=== PATIENT | male | born 1985 | race American Indian/Alaskan Native ===

== ENCOUNTER 2018-04-13 18:07 | Emergency (ER) | payer SELFPAY ==
[2018-04-13 18:30] VITALS: BP 113/87
--- NOTE | 2018-04-13 19:33 | Emergency Department Report ---
ED ENT HPI - General Chief complaint: Dental/Oral Stated complaint: TOOTHACHE Time Seen by Provider: 04/13/18 19:25 Source: patient Mode of arrival: Ambulatory Limitations: No Limitations - History of Present Illness Initial comments: 32-year-old male past medical history none presents with complaint of 2 weeks of left upper toothache. Denies pus or blood drainage from mouth. Speaking in full sentences. Denies fevers or chills. No trismus or drooling noted MD complaint: tooth pain Onset/Timin -: week(s) Location: tooth # 1 - fracture/cavity here Severity: mild Severity scale (0 -10): 6 Quality: aching Consistency: intermittent Improves with: none Worsens with: none Context- Dental: history of dental caries, poor dental care Associated Symptoms: toothache - Related Data Previous Rx's Medication Instructions Recorded Last Taken Type Cyclobenzaprine [Flexeril 10 MG 10 mg PO TID PRN #30 tablet 07/07/15 Unknown Rx TAB] HYDROcodone/APAP 5-325 [[place] 1 each PO Q6HR PRN #20 tablet 07/07/15 Unknown Rx 5-325 mg TAB] Ibuprofen [Motrin 800 MG tab] 800 mg PO Q8HR PRN #50 tablet 07/07/15 Unknown Rx Acetaminophen/Codeine [Tylenol 1 tab PO Q6H PRN #12 tab 04/13/18 Unknown Rx /Codeine # 3 tab] Chlorhexidine Mouthwash [Peridex] 15 ml MM BID #1 bottle 04/13/18 Unknown Rx Ibuprofen [Motrin] 800 mg PO Q8HR PRN #25 tablet 04/13/18 Unknown Rx Allergies Allergy/AdvReac Type Severity Reaction Status Date / Time No Known Allergies Allergy Unverified 07/07/15 07:17 ED Dental HPI - General Chief complaint: Dental/Oral Stated complaint: TOOTHACHE Time Seen by Provider: 04/13/18 19:25 Source: patient Mode of arrival: Ambulatory Limitations: No Limitations - Related Data Previous Rx's Medication Instructions Recorded Last Taken Type Cyclobenzaprine [Flexeril 10 MG 10 mg PO TID PRN #30 tablet 07/07/15 Unknown Rx TAB] HYDROcodone/APAP 5-325 [[place] 1 each PO Q6HR PRN #20 tablet 07/07/15 Unknown Rx 5-325 mg TAB] Ibuprofen [Motrin 800 MG tab] 800 mg PO Q8HR PRN #50 tablet 07/07/15 Unknown Rx Acetaminophen/Codeine [Tylenol 1 tab PO Q6H PRN #12 tab 04/13/18 Unknown Rx /Codeine # 3 tab] Chlorhexidine Mouthwash [Peridex] 15 ml MM BID #1 bottle 04/13/18 Unknown Rx Ibuprofen [Motrin] 800 mg PO Q8HR PRN #25 tablet 04/13/18 Unknown Rx Allergies Allergy/AdvReac Type Severity Reaction Status Date / Time No Known Allergies Allergy Unverified 07/07/15 07:17 ED Review of Systems ROS: Stated complaint: TOOTHACHE Other details as noted in HPI Constitutional: denies: chills, fever Eyes: denies: eye pain, eye discharge, vision change ENT: dental pain. denies: ear pain, throat pain Respiratory: denies: cough, shortness of breath, wheezing Cardiovascular: denies: chest pain, palpitations Endocrine: no symptoms reported Gastrointestinal: denies: abdominal pain, nausea, diarrhea Genitourinary: denies: urgency, dysuria Musculoskeletal: denies: back pain, joint swelling, arthralgia Skin: denies: rash, lesions Neurological: denies: headache, weakness, paresthesias Psychiatric: denies: anxiety, depression Hematological/Lymphatic: denies: easy bleeding, easy bruising ED Past Medical Hx - Past Medical History Previous Medical History?: No - Surgical History Past Surgical History?: No - Social History Smoking Status: Current Every Day Smoker - Medications Home Medications: Home Medications Medication Instructions Recorded Confirmed Last Taken Type Cyclobenzaprine [Flexeril 10 MG 10 mg PO TID PRN #30 tablet 07/07/15 Unknown Rx TAB] HYDROcodone/APAP 5-325 [[place] 1 each PO Q6HR PRN #20 tablet 07/07/15 Unknown Rx 5-325 mg TAB] Ibuprofen [Motrin 800 MG tab] 800 mg PO Q8HR PRN #50 tablet 07/07/15 Unknown Rx Acetaminophen/Codeine [Tylenol 1 tab PO Q6H PRN #12 tab 04/13/18 Unknown Rx /Codeine # 3 tab] Chlorhexidine Mouthwash [Peridex] 15 ml MM BID #1 bottle 04/13/18 Unknown Rx Ibuprofen [Motrin] 800 mg PO Q8HR PRN #25 tablet 04/13/18 Unknown Rx ED Physical Exam - General Limitations: No Limitations General appearance: alert, in no apparent distress - Head Head exam: Present: atraumatic, normocephalic - Eye Eye exam: Present: normal appearance, PERRL, EOMI - ENT ENT exam: Present: mucous membranes moist - Expanded ENT Exam Expanded Teeth exam: Present: dental tenderness # 1 - Fractured (large cavity) - Neck Neck exam: Present: normal inspection - Respiratory Respiratory exam: Present: normal lung sounds bilaterally. Absent: respiratory distress - Cardiovascular Cardiovascular Exam: Present: regular rate, normal rhythm. Absent: systolic murmur, diastolic murmur, rubs, gallop - GI/Abdominal GI/Abdominal exam: Present: soft, normal bowel sounds - Rectal Rectal exam: Present: deferred - Extremities Exam Extremities exam: Present: normal inspection - Back Exam Back exam: Present: normal inspection - Neurological Exam Neurological exam: Present: alert, oriented X3 - Psychiatric Psychiatric exam: Present: normal affect, normal mood - Skin Skin exam: Present: warm, dry, intact, normal color. Absent: rash ED Course Vital Signs 04/13/18 18:23 Temperature 98.5 F Pulse Rate 60 Respiratory 16 Rate Blood Pressure 113/87 Blood Pressure 113/87 [Right] O2 Sat by Pulse 100 Oximetry ED Medical Decision Making - Medical Decision Making A/P: dental cavity, toothache 1- Motrin when necessary, short course codeine when necessary, peridex mouthwash , no signs of infection or abscess on exam 2- I provided patient with information for multiple dental clinics to follow up and stressed the importance of dental follow-up as he has multiple cavities that require dental fixation or instrumentation 3- no clinical signs of facial abscess, no Pedro Luis's angina, no induration or cellulitis of floor of mouth or tongue 4- patient able to tolerate by mouth before discharge Critical care attestation.: If time is entered above; I have spent that time in minutes in the direct care of this critically ill patient, excluding procedure time. ED Disposition Clinical Impression: Toothache Disposition: DC-01 TO HOME OR SELFCARE Is pt being admited?: No Does the pt Need Aspirin: No Condition: Stable Instructions: Toothache (ED), Dental Caries (ED) Prescriptions: Acetaminophen/Codeine [Tylenol /Codeine # 3 tab] 1 tab PO Q6H PRN #12 tab PRN Reason: Toothache Chlorhexidine Mouthwash [Peridex] 15 ml MM BID #1 bottle Ibuprofen [Motrin] 800 mg PO Q8HR PRN #25 tablet PRN Reason: Pain Referrals: [facility] [Outside] - 3-5 Days Time of Disposition: 19:33
[2018-04-13] MEDS ORDERED: TYLENOL PO ONE (19:34)
== END 2018-04-13 20:24 | disposition home or self-care (01) ==
LOC: ED 18:07
DX: K08.89 Other specified disorders of teeth and supporting structures (principal); F17.200 Nicotine dependence, unspecified, uncomplicated
CPT/HCPCS: 99282

== ENCOUNTER 2019-05-23 20:12 | Emergency (ER) | payer OTHER ==
[2019-05-23 21:05] VITALS: BP 119/63
--- NOTE | 2019-05-23 21:07 | Event Note ---
ED Screening Note Date of service: 05/23/19 Time: 21:07 ED Screening Note: This is a 33 y.o. M. that presents to the ER with left foot pain s/p work related injury around 0600 this morning. This initial assessment/diagnostic orders/clinical plan/treatment(s) is/are subject to change based on patients health status, clinical progression and re- assessment by fellow clinical providers in the ED. Further treatment and workup at subsequent clinical providers discretion. Patient/guardian urged not to elope from the ED as their condition may be serious if not clinically assessed and managed. Initial orders include: XR left foot
[2019-05-23] MEDS ORDERED: NORCO 5/325 PO ONE (22:43)
--- NOTE | 2019-05-23 23:26 | XRay Report ---
PROCEDURE: XR FOOT 3+V LT TECHNIQUE: AP, oblique and lateral view of the left foot was obtained. HISTORY: foot pain blunt trauma COMPARISONS: None FINDINGS: Bone density appears normal. No fracture or dislocation is seen. Joint spaces are well maintained. No radiopaque foreign bodies are identified. IMPRESSION: Negative exam.. This document is electronically signed by Jose C Aranda MD., May 23 2019 11:24:19 PM ET
--- NOTE | 2019-05-23 23:36 | Emergency Department Report ---
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 Complaint: foot injury Onset/Timin -: days(s) Injury: Foot: Left Type of Injury: blunt Place: work Severity: moderate Severity scale (0 -10): 5 Improves With: rest Worsens With: weight bearing, movement, palpation Context: direct blow Associated Symptoms: ambulatory - Related Data Previous Rx's Medication Instructions Recorded Last Taken Type Cyclobenzaprine [Flexeril 10 MG 10 mg PO TID PRN #30 tablet 07/07/15 Unknown Rx TAB] HYDROcodone/APAP 5-325 [[place] 1 each PO Q6HR PRN #20 tablet 07/07/15 Unknown Rx 5-325 mg TAB] Ibuprofen [Motrin 800 MG tab] 800 mg PO Q8HR PRN #50 tablet 07/07/15 Unknown Rx Acetaminophen/Codeine [Tylenol 1 tab PO Q6H PRN #12 tab 04/13/18 Unknown Rx /Codeine # 3 tab] Chlorhexidine Mouthwash [Peridex] 15 ml MM BID #1 bottle 04/13/18 Unknown Rx Ibuprofen [Motrin] 800 mg PO Q8HR PRN #25 tablet 04/13/18 Unknown Rx Naproxen [Naprosyn] 500 mg PO BID PRN #30 tablet 05/23/19 Unknown Rx Allergies Allergy/AdvReac Type Severity Reaction Status Date / Time No Known Allergies Allergy Unverified 07/07/15 07:17 ED Review of Systems ROS: Stated complaint: LEFT TOE PAIN Other details as noted in HPI Constitutional: denies: chills, fever Eyes: denies: eye pain, eye discharge, vision change ENT: denies: ear pain, throat pain Respiratory: denies: cough, shortness of breath, wheezing Cardiovascular: denies: chest pain, palpitations Endocrine: no symptoms reported Gastrointestinal: denies: abdominal pain, nausea, diarrhea Genitourinary: denies: urgency, dysuria Musculoskeletal: other (foot pain ) Skin: denies: rash, lesions Neurological: denies: headache, weakness, paresthesias Psychiatric: denies: anxiety, depression Hematological/Lymphatic: denies: easy bleeding, easy bruising ED Past Medical Hx - Past Medical History Previous Medical History?: No - Surgical History Past Surgical History?: No - Social History Smoking Status: Never Smoker Substance Use Type: None - Medications Home Medications: Home Medications Medication Instructions Recorded Confirmed Last Taken Type Cyclobenzaprine [Flexeril 10 MG 10 mg PO TID PRN #30 tablet 07/07/15 Unknown Rx TAB] HYDROcodone/APAP 5-325 [[place] 1 each PO Q6HR PRN #20 tablet 07/07/15 Unknown Rx 5-325 mg TAB] Ibuprofen [Motrin 800 MG tab] 800 mg PO Q8HR PRN #50 tablet 07/07/15 Unknown Rx Acetaminophen/Codeine [Tylenol 1 tab PO Q6H PRN #12 tab 04/13/18 Unknown Rx /Codeine # 3 tab] Chlorhexidine Mouthwash [Peridex] 15 ml MM BID #1 bottle 04/13/18 Unknown Rx Ibuprofen [Motrin] 800 mg PO Q8HR PRN #25 tablet 04/13/18 Unknown Rx Naproxen [Naprosyn] 500 mg PO BID PRN #30 tablet 05/23/19 Unknown Rx ED Physical Exam - General Limitations: No Limitations General appearance: alert, in no apparent distress - Head Head exam: Present: atraumatic, normocephalic - Eye Eye exam: Present: normal appearance, PERRL, EOMI Pupils: Present: normal accommodation - ENT ENT exam: Present: mucous membranes moist - Neck Neck exam: Present: normal inspection, full ROM. Absent: tenderness, lymphadenopathy - Respiratory Respiratory exam: Present: normal lung sounds bilaterally. Absent: respiratory distress, wheezes, stridor, chest wall tenderness - Cardiovascular Cardiovascular Exam: Present: regular rate, normal rhythm, normal heart sounds. Absent: systolic murmur, diastolic murmur, rubs, gallop - GI/Abdominal GI/Abdominal exam: Present: soft, normal bowel sounds. Absent: distended, tenderness, guarding, rebound, rigid, bruit, hernia - Rectal Rectal exam: Present: deferred - Extremities Exam Extremities exam: Present: normal inspection, full ROM, tenderness (left lateral dorsal foot pain mild bruising distal pulses intact ), normal capillary refill. Absent: pedal edema, joint swelling, calf tenderness - Expanded Lower Extremity Exam Left Foot/Toe exam: Present: full ROM, tenderness, erythema. Absent: swelling, abrasion, laceration, ecchymosis, deformity, crepidus, dislocation, amputation, puncture wound, foreign body, calcaneal tenderness, tenderness at base of 5th metatarsal, nail avulsion, subungual hematoma Neuro vascular tendon exam: Absent: pulse deficit, motor deficit, sensory deficit, tendon deficit Gait: Positive: observed and normal - Back Exam Back exam: Present: normal inspection, full ROM. Absent: tenderness, CVA tenderness (R), CVA tenderness (L), muscle spasm, paraspinal tenderness, vertebral tenderness, rash noted - Neurological Exam Neurological exam: Present: alert, oriented X3, CN II-XII intact, normal gait, reflexes normal. Absent: motor sensory deficit - Psychiatric Psychiatric exam: Present: normal affect, normal mood - Skin Skin exam: Present: warm, dry, intact, normal color. Absent: rash ED Course Vital Signs 05/23/19 20:21 Temperature 98.0 F Pulse Rate 76 Respiratory 19 Rate Blood Pressure 119/63 O2 Sat by Pulse 95 Oximetry ED Lower Extremity MDM - Radiology Data Radiology results: report reviewed, image reviewed Ordering Physician: HADLEY BLISS NP Date of Service: 05/23/19 Procedure(s): XR foot 3+V LT Accession Number(s): [id number] cc: HADLEY BLISS NP Fluoro Time In Minutes: PROCEDURE: XR FOOT 3+V LT TECHNIQUE: AP, oblique and lateral view of the left foot was obtained. HISTORY: foot pain blunt trauma COMPARISONS: None FINDINGS: Bone density appears normal. No fracture or dislocation is seen. Joint spaces are well maintained. No radiopaque foreign bodies are identified. IMPRESSION: Negative exam.. This document is electronically signed by Jose C Aranda MD., May 23 2019 11:24:19 PM ET Transcribed By: DFN Dictated By: JOSE C ARANDA MD Electronically Authenticated By: JOSE C ARANDA MD Signed Date/Time: 05/23/19 6394 DD/ 00 TD/TT: 05/23/192300 - Medical Decision Making th is a foot sprain plan: nsaids , rice therapy , follow up with pcp in 2-3 days return to ed if symptoms worsen. Critical care attestation.: If time is entered above; I have spent that time in minutes in the direct care of this critically ill patient, excluding procedure time. ED Disposition Clinical Impression: Sprain of foot, left Qualifiers: Encounter type: initial encounter Qualified Code(s): S93.602A - Unspecified sprain of left foot, initial encounter Disposition: TO HOME OR SELFCARE Is pt being admited?: No Does the pt Need Aspirin: No Condition: Stable Instructions: Foot Sprain (ED) Prescriptions: Naproxen [Naprosyn] 500 mg PO BID PRN #30 tablet PRN Reason: pain Referrals: ANNA GASTELUM MD [Primary Care Provider] - 3-5 Days Forms: Work/School Release Form(ED) Time of Disposition: 23:39
== END 2019-05-24 00:05 | disposition home or self-care (01) ==
LOC: ED 20:12
DX: S93.602A Unspecified sprain of left foot, initial encounter (principal); W22.8XXA Striking against or struck by other objects, initial encounter; Y93.89 Activity, other specified; Y92.69 Other specified industrial and construction area as the place of occurrence of the external cause; Y99.0 Civilian activity done for income or pay

== ENCOUNTER 2019-08-04 21:55 | Emergency (ER) | payer SELFPAY ==
[2019-08-05 02:02] VITALS: BP 121/75
--- NOTE | 2019-08-05 03:37 | Emergency Department Report ---
ED General Adult HPI - General Chief complaint: Abdominal Pain Stated complaint: CONSTIPATION Time Seen by Provider: 08/05/19 02:59 Source: patient Mode of arrival: Ambulatory Limitations: No Limitations - History of Present Illness Initial comments: Patient is a 33-year-old male who presents emergency room with complaints of constipation for the last 3 days. He states he has had issues with constipation in the past. He states he took a laxative one time over the counter without any relief. Denies any nausea, vomiting, diarrhea, fever, abdominal pain, hematochezia, melena. he is tolerating by mouth intake without any issues. Denies any past medical history or allergies medications. - Related Data Previous Rx's Medication Instructions Recorded Last Taken Type Cyclobenzaprine [Flexeril 10 MG 10 mg PO TID PRN #30 tablet 07/07/15 Unknown Rx TAB] HYDROcodone/APAP 5-325 [[place] 1 each PO Q6HR PRN #20 tablet 07/07/15 Unknown Rx 5-325 mg TAB] Ibuprofen [Motrin 800 MG tab] 800 mg PO Q8HR PRN #50 tablet 07/07/15 Unknown Rx Acetaminophen/Codeine [Tylenol 1 tab PO Q6H PRN #12 tab 04/13/18 Unknown Rx /Codeine # 3 tab] Chlorhexidine Mouthwash [Peridex] 15 ml MM BID #1 bottle 04/13/18 Unknown Rx Ibuprofen [Motrin] 800 mg PO Q8HR PRN #25 tablet 04/13/18 Unknown Rx Naproxen [Naprosyn] 500 mg PO BID PRN #30 tablet 05/23/19 Unknown Rx Docusate Sodium [Colace] 100 mg PO BID PRN #14 capsule 08/05/19 Unknown Rx Magnesium Citrate [Citrate of 300 ml PO ONCE #1 bottle 08/05/19 Unknown Rx Magnesia] Allergies Allergy/AdvReac Type Severity Reaction Status Date / Time No Known Allergies Allergy Verified 08/04/19 22:06 ED Review of Systems ROS: Stated complaint: CONSTIPATION Other details as noted in HPI Comment: All other systems reviewed and negative ED Past Medical Hx - Social History Smoking Status: Never Smoker Substance Use Type: None - Medications Home Medications: Home Medications Medication Instructions Recorded Confirmed Last Taken Type Cyclobenzaprine [Flexeril 10 MG 10 mg PO TID PRN #30 tablet 07/07/15 Unknown Rx TAB] HYDROcodone/APAP 5-325 [[place] 1 each PO Q6HR PRN #20 tablet 07/07/15 Unknown Rx 5-325 mg TAB] Ibuprofen [Motrin 800 MG tab] 800 mg PO Q8HR PRN #50 tablet 07/07/15 Unknown Rx Acetaminophen/Codeine [Tylenol 1 tab PO Q6H PRN #12 tab 04/13/18 Unknown Rx /Codeine # 3 tab] Chlorhexidine Mouthwash [Peridex] 15 ml MM BID #1 bottle 04/13/18 Unknown Rx Ibuprofen [Motrin] 800 mg PO Q8HR PRN #25 tablet 04/13/18 Unknown Rx Naproxen [Naprosyn] 500 mg PO BID PRN #30 tablet 05/23/19 Unknown Rx Docusate Sodium [Colace] 100 mg PO BID PRN #14 capsule 08/05/19 Unknown Rx Magnesium Citrate [Citrate of 300 ml PO ONCE #1 bottle 08/05/19 Unknown Rx Magnesia] ED Physical Exam - General Limitations: No Limitations General appearance: alert, in no apparent distress - Head Head exam: Present: atraumatic, normocephalic - Eye Eye exam: Present: normal appearance - ENT ENT exam: Present: mucous membranes moist - Respiratory Respiratory exam: Present: normal lung sounds bilaterally. Absent: respiratory distress, wheezes, rales, rhonchi, stridor, chest wall tenderness, accessory muscle use, decreased breath sounds, prolonged expiratory - Cardiovascular Cardiovascular Exam: Present: regular rate, normal rhythm, normal heart sounds. Absent: systolic murmur, diastolic murmur, rubs, gallop - GI/Abdominal GI/Abdominal exam: Present: soft, normal bowel sounds. Absent: distended, tenderness, guarding, rebound, rigid - Neurological Exam Neurological exam: Present: alert, oriented X3 - Psychiatric Psychiatric exam: Present: normal affect, normal mood - Skin Skin exam: Present: warm, dry, intact ED Course Vital Signs 08/04/19 08/05/19 23:04 01:58 Temperature 98.5 F 98.1 F Pulse Rate 72 58 L Respiratory 16 16 Rate Blood Pressure 118/40 121/75 O2 Sat by Pulse 98 100 Oximetry ED Medical Decision Making - Medical Decision Making Patient is a 33-year-old male who presents emergency room with complaints of constipation for the last 3 days. He states he has had issues with constipation in the past. He states he took a laxative one time over the counter without any relief. Denies any nausea, vomiting, diarrhea, fever, abdominal pain, hematochezia, melena. he is tolerating by mouth intake without any issues. Denies any past medical history or allergies medications. VSS. on exam: no abd tenderness, no peritoneal signs, normal bowel sounds. pt has no obstructive signs/sx. pt given prescription for colace and magnesium citrate. advised pt to Please take medication as prescribed. drink plenty of water and eat a high- fiber diet. follow up with a primary care doctor in the next 2-3 days. return to the emergency room for any new or worsening symptoms or if symptoms not improving. Critical care attestation.: If time is entered above; I have spent that time in minutes in the direct care of this critically ill patient, excluding procedure time. ED Disposition Clinical Impression: Constipation Qualifiers: Constipation type: unspecified constipation type Qualified Code(s): K59.00 - Constipation, unspecified Disposition: TO HOME OR SELFCARE Is pt being admited?: No Does the pt Need Aspirin: No Condition: Stable Instructions: Constipation (ED), High Fiber Diet (ED) Additional Instructions: Please take medication as prescribed. drink plenty of water and eat a high- fiber diet. follow up with a primary care doctor in the next 2-3 days. return to the emergency room for any new or worsening symptoms or if symptoms not improving. Prescriptions: Magnesium Citrate [Citrate of Magnesia] 300 ml PO ONCE #1 bottle Docusate Sodium [Colace] 100 mg PO BID PRN #14 capsule PRN Reason: Constipation Referrals: [facility] [Provider Group] - 2-3 Days Forms: Work/School Release Form(ED) Time of Disposition: 03:35 Print Language: PUERTO RICAN
== END 2019-08-05 04:02 | disposition home or self-care (01) ==
LOC: ED 21:55
DX: K59.00 Constipation, unspecified (principal)
CPT/HCPCS: 99281

== ENCOUNTER 2019-09-14 22:16 | Emergency (ER) | payer SELFPAY ==
[2019-09-14 23:02] VITALS: BP 108/62
--- NOTE | 2019-09-15 00:06 | Emergency Department Report ---
Chief Complaint: Extremity Injury, Lower Stated Complaint: RT KNEE PAIN Time Seen by Provider: 09/15/19 00:03 - HPI History of Present Illness: Fabien is a 33 yo healthy male who presents with right knee "buckling" and "giving out" on him for several months. 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 Given referral to orthopedic surgeon. Knee is stable without laxity. Extremity is neurovascularly intact. No indication of limb or life threatening condition or injury. MSE complete. - Exam Vital Signs: Vital Signs 09/14/19 23:00 Temperature 98.5 F Pulse Rate 87 Respiratory 18 Rate Blood Pressure 108/62 O2 Sat by Pulse 99 Oximetry MSE screening note: Focused history and physical exam performed. Due to findings the following was ordered: ED Disposition for MSE Clinical Impression: Right knee sprain Disposition: Z- MED SCREENING EXAM-LEFT Is pt being admited?: No Does the pt Need Aspirin: No Condition: Stable Referrals: BHAVIN SESAY MD [Staff Physician] - 3-5 Days Forms: Work/School Release Form(ED)
== END 2019-09-15 00:15 | disposition left against medical advice (07) ==
LOC: ED 22:16
DX: S83.91XA Sprain of unspecified site of right knee, initial encounter (principal); X58.XXXA Exposure to other specified factors, initial encounter; Y93.89 Activity, other specified; Y92.89 Other specified places as the place of occurrence of the external cause; Y99.8 Other external cause status

== ENCOUNTER 2022-03-26 17:23 | Emergency (ER) | payer OTHER ==
[2022-03-26] MEDS ORDERED: ACETAMINOPHEN 325 MG TAB PO ONE (19:45)
--- NOTE | 2022-03-26 20:12 | XRay Report ---
Left knee 3 views INDICATION: Left knee pain following injury IMPRESSION: No fracture or subluxation. There is minimal knee effusion. Signer Name: Gilbert Lucia MD Signed: 03/26/2022 8:08 PM Workstation Name: [id number]
--- NOTE | 2022-03-26 21:40 | Emergency Department Report ---
ED Lower Extremity HPI - General Chief Complaint: Fall Stated Complaint: LEG INJURY/WORK RELATED Time Seen by Provider: 03/26/22 20:57 Source: patient Mode of arrival: Ambulatory Limitations: No Limitations - History of Present Illness Initial Comments: 36-year-old black male with no past medical history presents to the emergency department for evaluation of left leg pain. 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 He denies loss of consciousness was but presents with left knee pain. He states that pain is 10 out of 10. Complaint: leg injury -: Sudden, days(s) Injury: Knee: Left Type of Injury: other Place: work (Follow-up) Severity: moderate Severity scale (0 -10): 6 Improves With: nothing Worsens With: weight bearing Context: fall Associated Symptoms: denies: snap/pop sensation, swelling, numbness, tingling, unable to bear weight - Related Data Previous Rx's Medication Instructions Recorded Last Taken Type Cyclobenzaprine [Flexeril 10 MG 10 mg PO TID PRN #30 tablet 07/07/15 Unknown Rx TAB] HYDROcodone/APAP 5-325 [Cool 1 each PO Q6HR PRN #20 tablet 07/07/15 Unknown Rx 5-325 mg TAB] Ibuprofen [Motrin 800 MG tab] 800 mg PO Q8HR PRN #50 tablet 07/07/15 Unknown Rx Acetaminophen/Codeine [Tylenol 1 tab PO Q6H PRN #12 tab 04/13/18 Unknown Rx /Codeine # 3 tab] Chlorhexidine Mouthwash [Peridex] 15 ml MM BID #1 bottle 04/13/18 Unknown Rx Ibuprofen [Motrin] 800 mg PO Q8HR PRN #25 tablet 04/13/18 Unknown Rx Naproxen [Naprosyn] 500 mg PO BID PRN #30 tablet 05/23/19 Unknown Rx Docusate Sodium [Colace] 100 mg PO BID PRN #14 capsule 08/05/19 Unknown Rx Magnesium Citrate [Citrate of 300 ml PO ONCE #1 bottle 08/05/19 Unknown Rx Magnesia] Naproxen [Naprosyn] 500 mg PO BID #14 tab 03/26/22 Unknown Rx Allergies Allergy/AdvReac Type Severity Reaction Status Date / Time No Known Allergies Allergy Verified 03/26/22 21:41 ED Review of Systems ROS: Stated complaint: LEG INJURY/WORK RELATED Other details as noted in HPI Comment: All other systems reviewed and negative Constitutional: denies: chills, fever Respiratory: denies: cough, shortness of breath, SOB with exertion, SOB at rest Cardiovascular: denies: chest pain Gastrointestinal: denies: abdominal pain, nausea, vomiting Musculoskeletal: denies: back pain Neurological: denies: headache, weakness ED Past Medical Hx - Past Medical History Additional medical history: Lower Abdominal Pain. - Social History Smoking Status: Current Every Day Smoker Substance Use Type: None - Medications Home Medications: Home Medications Medication Instructions Recorded Confirmed Last Taken Type Cyclobenzaprine [Flexeril 10 MG 10 mg PO TID PRN #30 tablet 07/07/15 Unknown Rx TAB] HYDROcodone/APAP 5-325 [Cool 1 each PO Q6HR PRN #20 tablet 07/07/15 Unknown Rx 5-325 mg TAB] Ibuprofen [Motrin 800 MG tab] 800 mg PO Q8HR PRN #50 tablet 07/07/15 Unknown Rx Acetaminophen/Codeine [Tylenol 1 tab PO Q6H PRN #12 tab 04/13/18 Unknown Rx /Codeine # 3 tab] Chlorhexidine Mouthwash [Peridex] 15 ml MM BID #1 bottle 04/13/18 Unknown Rx Ibuprofen [Motrin] 800 mg PO Q8HR PRN #25 tablet 04/13/18 Unknown Rx Naproxen [Naprosyn] 500 mg PO BID PRN #30 tablet 05/23/19 Unknown Rx Docusate Sodium [Colace] 100 mg PO BID PRN #14 capsule 08/05/19 Unknown Rx Magnesium Citrate [Citrate of 300 ml PO ONCE #1 bottle 08/05/19 Unknown Rx Magnesia] Naproxen [Naprosyn] 500 mg PO BID #14 tab 03/26/22 Unknown Rx ED Physical Exam - General Limitations: No Limitations General appearance: alert, in no apparent distress - Head Head exam: Present: atraumatic, normocephalic - Eye Eye exam: Present: normal appearance. Absent: conjunctival injection, periorbital swelling - Neck Neck exam: Present: normal inspection. Absent: tenderness - Respiratory Respiratory exam: Absent: respiratory distress, chest wall tenderness - Cardiovascular Cardiovascular Exam: Present: regular rate - GI/Abdominal GI/Abdominal exam: Present: soft. Absent: distended, tenderness - Expanded Lower Extremity Exam Left Knee exam: Present: full ROM, tenderness. Absent: swelling, abrasion, laceration, ecchymosis, deformity, crepidus, dislocation, erythema, effusion Neuro vascular tendon exam: Present: no vascular compromise. Absent: pulse deficit, abnormal cap refill, motor deficit, sensory deficit, extremity cold to touch Gait: Positive: observed and normal - Back Exam Back exam: Present: normal inspection. Absent: tenderness - Neurological Exam Neurological exam: Present: alert, oriented X3 - Psychiatric Psychiatric exam: Present: normal affect, normal mood - Skin Skin exam: Present: warm, dry, intact, normal color ED Course Vital Signs 03/26/22 21:56 Pulse Rate 66 Respiratory 14 Rate Blood Pressure 127/83 [Right] O2 Sat by Pulse 100 Oximetry ED Lower Extremity MDM - Radiology Data Radiology results: report reviewed, image reviewed Left knee x-ray: IMPRESSION: No fracture or subluxation. There is minimal knee effusion. - Medical Decision Making 36-year-old black male with no past medical history presents to the emergency department for evaluation of left leg pain. 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 He denies loss of consciousness was but presents with left knee pain. He states that pain is 10 out of 10. Left knee x-ray without any acute abnormalities noted. Patient will be discharged home with 7-day course of anti-inflammatories and advised to take medication as prescribed and if no improvement follow-up with orthopedics for further evaluation and management. He is advised to return to the emergency department for any concerning symptoms. He verbalized understanding of and agreement with plan of care. Critical care attestation.: If time is entered above; I have spent that time in minutes in the direct care of this critically ill patient, excluding procedure time. ED Disposition Clinical Impression: Effusion, left knee Left knee pain Qualifiers: Chronicity: acute Qualified Code(s): M25.562 - Pain in left knee Disposition: HOME / SELF CARE / HOMELESS Is pt being admited?: No Does the pt Need Aspirin: No Condition: Stable Instructions: Knee Effusion, [id number], Acute Knee Pain, Adult, [id number] Additional Instructions: Take medications as prescribed. Follow-up with orthopedics if no improvement or worsening symptoms. Return to the emergency department as needed. Prescriptions: Naproxen [Naprosyn] 500 mg PO BID #14 tab Referrals: LISSETTE RODRIGUES MD [Staff Physician] - 3-5 Days Forms: Work/School Release Form(ED) Time of Disposition: 21:39
[2022-03-26 21:57] VITALS: BP 127/83
== END 2022-03-26 23:19 | disposition home or self-care (01) ==
LOC: ED 17:23
DX: M25.562 Pain in left knee (principal); M25.462 Effusion, left knee
CPT/HCPCS: 99283